=== PATIENT | female | born 1990 | race Caucasian/White ===

== ENCOUNTER 2023-01-12 09:55 | Outpatient (CLI) | payer OTHER, SELFPAY ==
--- NOTE | ~2023-01-12 | MMUS_ITS ---
EXAMINATION: US GUIDED NEEDLE BIOPSY DATE: 01/12/2023 12:45 CDT INDICATION: Left breast 11:00 mass TECHNIQUE AND FINDINGS: The risks and potential benefits of the procedure were discussed with the patient, and written inform ed consent was obtained. Timeout procedure was performed. After sterile preparation of the left breas t, 1% lidocaine was utilized for local anesthesia. A 12 G spring-loaded biopsy gun needle was advanced to the edge of the region of interest from infero lateral approach utilizing sonographic guidance. A total of three tissue core samples were obtained through the lesion. An Inrad tissue marker clip was then placed at the biopsy site. Hemostasis was a chieved. A sterile bandage was applied. The patient tolerated procedure well and there was no evidence of immediate complication. The patien t was given verbal instructions prior to departing from the department. A two view mammogram was perf ormed to document tissue marker clip placement. The tissue samples were submitted to surgical patholo gy for histologic analysis. IMPRESSION: Ultrasound guided biopsy of left 11:00 breast mass with biopsy marker placement. Please refer to path ology report for histologic analysis. Reviewed, dictated and finalized at [facility]. Reviewed, dictated and finalized at [facility]. IMPRESSION: Ultrasound guided biopsy of left 11:00 breast mass with biopsy marker placement . Please refer to pathology report for histologic analysis.
== END 2023-01-12 09:56 | disposition home or self-care (01) ==
LOC: ANHIMG 10:00
PROVIDERS: PCP Internal Medicine; Visit Provider Physician Assistant Surgical
DX: N63.20 Unspecified lump in the left breast, unspecified quadrant (principal); R92.8 Other abnormal and inconclusive findings on diagnostic imaging of breast
CPT/HCPCS: 19083; 88305; A4648

== ENCOUNTER 2023-01-24 10:40 | Outpatient (RCR) | payer OTHER, SELFPAY ==
[2023-01-24 11:02] VITALS: BP_SYST 140
--- NOTE | 2023-01-25 14:44 | PTOPEVAL1 ---
Assessment and note entered by Naila Sims, PT, DPT Evaluation Information Assessment Status Evaluation Diagnosis L shoulder pain Subjective Information Pt states her pain is actually in the L shoulder. Pt states over a year ago she was moving [place] country and has had pain since. She states she has seen a chiropractor and her GP for this issue in the last. She states her pain is annoying, and with her arm in certain positions her hand will hurt. She states she also has upper back pain with deep breathing. She states she cannot lay on her shoulder d/t pain. Reported Pain Level Pain Score 0: Self Report Assessment PT Clinical Summary Susana presents to therapy today for her initial evaluation with a diagnosis of L shoulder pain. Today she demonstrates decreased active shoulder strength and ROM on the L when compared to the R shoulder. She demonstrates poor scapulohumeral rhythm on the L. She also demonstrates postural deficits noted by forward and rounded shoulders. 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 She will follow up with the clinic in about a month. Plan of Care Interventions Manual Therapy,Neuro Re-education,Patient/ Caregiver Educati,Therapeutic Activities, Therapeutic Exercise PT Services Indicated Yes Treatment Frequency and 1x a month for 8 weeks Duration These treatments will address the objective and functional deficits as defined above. The patient will be advanced safely and appropriately in order for the patient to progress towards his/her prior level of function. Additional exercises will be introduced and as well as a comprehensive home exercise program upon discharge, if needed, ?to ensure carryover of functional gains achieved in the clinic. This treatment plan has been reviewed and agreement upon by the patient.
--- NOTE | 2023-03-29 10:40 | PTOPDC ---
Assessment and note entered by Naila Sims, PT, DPT Evaluation Information Assessment Status Discharge - Pt Not Present Diagnosis L shoulder pain Subjective Information Called pt to follow up on shoulder on 03/07/23 and have not heard back from her since. Assessment PT Clinical Summary Pt was evaluated on 01/24/23 and has not returned for any additional therapy. She will be discharged at this time. If additional therapy is needed at a later date she will need a new order.
== END 2023-03-29 14:49 | disposition home or self-care (01) ==
LOC: ANHGOSHPT 10:40
PROVIDERS: PCP Internal Medicine; Visit Provider Clinical Nurse Specialist
DX: M25.511 Pain in right shoulder (principal)
CPT/HCPCS: 97110; 97140; 97161

== ENCOUNTER 2023-11-23 11:41 | Outpatient (CLI) | payer BC, SELFPAY ==
--- NOTE | ~2023-11-23 | US_ITS ---
US breast LT limited 11/23/2023 12:09 Indication: Follow-up left breast mass following benign biopsy. Procedure: High-resolution Limited ultrasound of the left breast Comparison: Comparison to multiple prior studies sequentially, with oldest reviewed study dated 12/16. Findings: At 11:00, 3 cm from the nipple, there is an oval hypoechoic mass measuring 12 x 11 x 5 mm, unchanged from prior examination allowing for technique. There is a linear echogenic focus within the mass, most likely biopsy clip. There is parallel orientation, no internal vascularity and no signifi cant posterior features. Impression: 1: Stable oval hypoechoic left breast mass measuring 12 mm at 11:00, 3 cm from the nipple, previously biopsy-proven benign. BI-RADS CATEGORY 2 - BENIGN FINDINGS Reviewed, dictated and finalized at [facility]. Impression: 1: Stable oval hypoechoic left breast mass measuring 12 mm at 11:00, 3 cm from the nipple, previously biopsy-proven benign. BI-RADS CATEGORY 2 - BENIGN FINDINGS
== END 2023-11-23 11:42 ==
LOC: MICIMG 11:41
PROVIDERS: PCP Clinical Nurse Specialist; Visit Provider Clinical Nurse Specialist
DX: N63.20 Unspecified lump in the left breast, unspecified quadrant (principal); R92.8 Other abnormal and inconclusive findings on diagnostic imaging of breast
CPT/HCPCS: 76642

== ENCOUNTER 2024-05-17 12:11 | Emergency (ER) | payer BC, SELFPAY ==
--- NOTE | ~2024-05-17 | XR_ITS ---
EXAMINATION: XR chest 2V DATE: 05/17/2024 13:00 INDICATION: Cough. Dyspnea on exertion. TECHNIQUE: Frontal and lateral views of the chest were obtained. COMPARISON: None. FINDINGS: There is no pneumonia, pleural effusion, or pneumothorax. The heart size is normal. IMPRESSION: 1. No acute cardiopulmonary disease. Reviewed, dictated and finalized at location [facility]. [facility] FEEDER
[2024-05-17 12:20] VITALS: BP 125/88; PULSE 103; RESP 16; TEMP 37.1; O2SAT 100
--- NOTE | 2024-05-17 12:53 | ED.URI ---
HPI - URI/Sore Throat General Chief Complaint: Upper Respiratory Infection Stated Complaint: Fever/Nausea/Cough Time Seen by Provider: 05/17/24 12:32 Source: patient, RN notes reviewed and old records reviewed Mode of arrival: ambulatory Limitations: no limitations History of Present Illness HPI Narrative: 34 year old female who presents to [facility] with complaints of cold symptoms which started 10 days ago which have gotten better except for productive cough, hoarseness, and some nausea. Patient reports that she has noted some PLATA with patient able to speak in full sentences, no retractions, no tachypnea, SAO2 100% on room air MD elicited complaint: cough and other (hoarseness and PLATA) Onset (ago): day(s) (10) Severity: moderate Description of mucous: clear Able to tolerate fluids by mouth: Yes Treatments prior to arrival: ibuprofen Related Data Allergies Allergy/AdvReac Type Severity Reaction Status Date / Time bactrim Allergy Mild Rash Uncoded 05/17/24 12:22 Review of Systems Review of Systems: CONSTITUTIONAL: Reports malaise,no chills, sweats, or fever. EYES: Denies visual changes, redness, or discharge. ENT: Reports rhinorrhea, congestion,no sinus pain,no otalgia and sore throat. CARDIOVASCULAR: Denies chest pain, palpitations, or edema. RESPIRATORY: Reports productive cough.? Denies acute dyspnea, reports some PLATA GASTROINTESTINAL: Denies abdominal pain, positive for nausea,no vomiting,no diarrhea SKIN: Denies rash or itching. MUSCULOSKELETAL: Denies myalgia. NEUROLOGIC: Denies headache. All systems reviewed & are unremarkable except as noted in HPI and below PMFSH Past Medical History Medical History Abnormal mammogram of left breast Encounter to establish care Fatigue History of paroxysmal supraventricular tachycardia Rhinorrhea Screening for lipoid disorders Screening for metabolic disorder Vitamin D deficiency Surgical History Surgical History H/O cardiac radiofrequency ablation 2016 H/O left breast biopsy History of breast biopsy 2019 Family History Family History Mother Asthma Son Asthma Sibling Asthma Grandparent Breast cancer Hypertension Father Diabetes mellitus Hypertension Grandparent Diabetes mellitus Other Carcinoma of colon Social History Social History Smoking status: Never smoker Alcohol intake: current Alcohol use details: social drink Substance use: never Substance use type: does not use Do You Feel Safe in your Home?: Yes Lack of Transportation: No Lack of Food: Never True Current Housing: I Have Housing Concerned About Future Housing: No Difficulty Paying Gas/Electric Bills: No Difficulty Paying for Meds: No Currently Unemployed: No Education: Master's Degree or Higher Difficulty w/ Childcare or Family Care: No Living arrangements: with family Occupation/Education: occupation Gender identity (if verbalized by the patient): Female Sexual Orientation (if Verbalized by the Patient): Straight or Heterosexual Comments At time of signature, agree with nursing past medical, surgical, social and family history. There is no relevant family history pertinent to the presenting complaint Exam Narrative: GENERAL: Well-appearing, well-nourished, and in no acute distress. HEAD: Normocephalic EYES: PERRLA, conjunctivae clear ENT: Nares clear, turbinates edematous and erythematous, clear discharge. Mucous membranes moist. TM pearly bejarano with dull light reflex bilaterally; no tragal tenderness. Oropharynx erythematous without lesions. Tonsils not enlarged and without exudate, no drooling, positive for hoarseness, no trismus, uvula midline.post nasal drainage NECK: Supple. No lymphadenopathy CHEST: Clear to auscultation, breath sounds equal. No wheezing, rhonchi, rales, or stridor. No respiratory distress, speaks in full sentences.cough with some stated PLATA, SAO2 100% on room air no tachypnea noted or an signs of dyspnea noted or retractions. HEART: Regular rate and rhythm. No murmur heard. SKIN: Warm, dry, no rash. NEURO: Alert and oriented x3. PSYCH: Normal mood and affect Course Course Emergency Course: Patient is aware of diagnosis, understands and agrees to treatment plan.? Anticipatory guidance given.? Patient agrees to follow-up as directed and is aware of reasons to seek care at the emergency department. Portions of this record may have been created with voice recognition software Level of Care: Express Care Visit Vital Signs Vital signs: Vital Signs Temperature 37.1 C 05/17/24 12:20 Pulse Rate 103 H 05/17/24 12:20 Respiratory Rate 16 05/17/24 12:20 Blood Pressure 125/88 05/17/24 12:20 Pulse Oximetry 100 05/17/24 12:20 Temperature 37.1 C 05/17/24 12:20 Pulse Rate 103 H 05/17/24 12:20 Respiratory Rate 16 05/17/24 12:20 Blood Pressure 125/88 05/17/24 12:20 Pulse Oximetry 100 05/17/24 12:20 Reviewed MDM - URI/Sore Throat MDM Narrative Medical decision making narrative: Differential diagnosis considered: Saavedra virus, strep pharyngitis, allergic rhinitis, upper respiratory tract infection, sinusitis, rhinosinusitis, nasopharyngitis. viral pharyngitis, otitis media, otitis externa, pneumonia, bronchitis, viral cough syndrome, viral syndrome, and influenza.? Exam findings show no acute concerns or changes; patient is non-toxic appearing and is in no distress.? Patient is appropriate for outpatient treatment and follow-up. Differential Diagnosis Differential diagnosis: Likely upper respiratory infection, sinusitis, viral infection and other (cough, PLATA, some nausea) Medical Records Attestation: I reviewed the patient's medical records. Lab Data Attestation: I reviewed the patient's lab results. Imaging Data Attestation: I personally reviewed and interpreted this imaging study as follows: My impression: no acute cardiopulmonary disease Radiologist's impression: [address] [place] [address] XRay Report Signed Patient: Susana Sy : 1990 MR#: [id number] Age: 34 Acct:[id number] Loc: [facility] ADM Date: 05/17/24Attending Dr: Ordering Physician: Massiel Frye APRN Date of Service: 05/17/24 Procedure(s): XR chest 2V Accession Number(s): [id number] cc: Massiel Frye APRN; Tori Menendez APRN~ EXAMINATION: XR chest 2V DATE: 05/17/2024 13:00 INDICATION: Cough. Dyspnea on exertion. TECHNIQUE: Frontal and lateral views of the chest were obtained. COMPARISON: None. FINDINGS: There is no pneumonia, pleural effusion, or pneumothorax. The heart size is normal. IMPRESSION: 1. No acute cardiopulmonary disease. Reviewed, dictated and finalized at [facility]. CURER Dictated By: Matthew Garay MD 05/17/24 1307 Signed By: <Electronically signed by Matthew Garay MD in OV> Critical Care Time Critical Care Time Critical Care Time: No Discharge Plan Discharge Clinical Impression: URI with cough and congestion Patient Disposition: Home, Self-Care Condition: Stable Instructions: Antibiotic Form, Upper Respiratory Infection (ED), Acute Cough (ED) Additional Instructions: Increase fluids especially juices and water [id number] cough and cold medicine of your choice for your symptoms Zyrtec Claritin or Josephine include Coricidin brand decongestant Steroids as directed--take with food heat to the face 20-30 minutes 4-6 times a day for pain Salt water gargles, throat lozenges or throat sprays as desired Antibiotic as directed--finished the medication If your symptoms persist, change or worsen significantly before you can contact your personal physician then please, without delay, go to the emergency department for further evaluation. Follow-up with PCP in 7-10 days or sooner if needed Follow up with PCP soon in regards to your blood pressure which is elevated above threshold for referral. Blood pressure above 120/80 may indicate pre-hypertension. 125/88 Prescriptions: New azithromycin 250 mg tablet See Rx Instructions .ROUTE .COMPLEX Qty: 6 0RF Rx Instructions: For 250 mg dose pack: take 500 mg today (day 1), then 250 mg for 4 days (days 2-5) prednisone 20 mg tablet 20 mg PO BID Qty: 10 0RF Rx Instructions: take with food in am and early pm No Action clobetasol 0.05 % solution 1 applic topical BID 14 Days Qty: 50 1RF Rx Instructions: Apply twice a day for 2 weeks to scalp and then as needed. cholecalciferol (vitamin D3) 1,250 mcg (50,000 unit) tablet 1,250 mcg PO WEEKLY Qty: 8 0RF atomoxetine [Strattera] 80 mg capsule 80 mg PO DAILY Qty: 90 0RF Rx Instructions: DUE FOR AN APPOINTMENT. Follow-up/Referrals: Tori Menendez [facility] [Primary Care Provider] - Time of Disposition: 13:22 Quality [place] Coma Scale Eyes: Open Verbal: Oriented and Alert Motor: Follows Commands [place] Coma Total Score: 15
== END 2024-05-17 13:25 | disposition home or self-care (01) ==
PROVIDERS: Emergency Provider Registered Nurse; PCP Clinical Nurse Specialist
DX: J06.9 Acute upper respiratory infection, unspecified (principal); R05.9 Cough, unspecified
CPT/HCPCS: 71046; 99213; G0463

== ENCOUNTER 2024-09-19 10:04 | Outpatient (CLI) | payer OTHER, SELFPAY ==
--- NOTE | ~2024-09-19 | XR_ITS ---
Lumbosacral Spine: AP and lateral views Clinical History: Pain Findings: The normal lordotic curve is maintained. The vertebral bodies and posterior elements are i ntact. The intervertebral disc spaces are preserved. The sacroiliac joints are normally outlined. Impression: No significant abnormality. Reviewed, dictated and finalized at [facility]. Impression: No significant abnormality.
== END 2024-09-19 10:05 | disposition home or self-care (01) ==
PROVIDERS: PCP Clinical Nurse Specialist; Visit Provider Nurse Practitioner
DX: M54.16 Radiculopathy, lumbar region (principal)
CPT/HCPCS: 72110

== ENCOUNTER 2024-10-28 13:49 | Outpatient (CLI) | payer OTHER, SELFPAY ==
--- NOTE | ~2024-10-28 | MR_ITS ---
EXAMINATION: MR lumbar spine wo con DATE: 10/28/2024 14:13 INDICATION: Lumbar radiculopathy TECHNIQUE: Magnetic resonance imaging (MRI) of the lumbar spine was performed without intravenous con trast. Sequences included sagittal T2-weighted FSE, sagittal T2-weighted FS FSE, sagittal T1-weighted FSE, and axial T2-weighted FSE. COMPARISON: None FINDINGS: Alignment is normal. Vertebral body heights are normal. Normal marrow signal. Moderate disc height l oss with annular fissure and right paracentral disc extrusion at L5-S1. Remaining discs are normal. T he conus medullaris terminates at L1-L2. There is normal signal in the caudal spinal cord. Paraverteb ral soft tissues are unremarkable. The following disc levels are specifically discussed: T12-L1 through L4-L5: The disc does not extend beyond the endplate margin. There is mild bilateral fa cet joint osteoarthritis. There is no neural foraminal stenosis. There is no central canal stenosis. L5-S1: Annular fissure and right paracentral disc extrusion which measures 12 mm left to right from t he midline to the right neural foramen, 8 mm AP and 9 mm chronic caudally. This narrows the right lat eral recess exerting mass effect upon the traversing right S1 nerve root. There is mild bilateral fac et joint osteoarthritis. There is no neural foraminal stenosis. There is minimal central canal stenos is. IMPRESSION: 1. Annular fissure and moderate sized right paracentral disc extrusion at L5-S1 which significantly n arrows the right lateral recess exerting mass effect upon the traversing right S1 nerve root. Correla te clinically for muscle weakness of plantar flexion, sensory change of the lateral foot and small to e, and depressed ankle reflex. Reviewed, dictated and finalized at location B. IMPRESSION: 1. Annular fissure and moderate sized right paracentral disc extrusion at L5-S1 which significantly narrows the right lateral recess exerting mass effect upon the traversing right S1 nerve root. Correlate clinically for muscle weakness o f plantar flexion, sensory change of the lateral foot and small toe, and depres sed ankle reflex.
== END 2024-10-28 13:50 | disposition home or self-care (01) ==
LOC: MICIMG 13:50
PROVIDERS: PCP Clinical Nurse Specialist; Visit Provider Nurse Practitioner
DX: M54.16 Radiculopathy, lumbar region (principal); M51.27 Other intervertebral disc displacement, lumbosacral region
CPT/HCPCS: 72148

== ENCOUNTER 2024-11-08 13:15 | Outpatient (RCR) | payer OTHER, SELFPAY ==
--- NOTE | 2024-08-13 13:12 | OPREHPOC ---
Outpatient Therapy Plan of Care This is a Multidisciplinary Plan of Care that may contain components documented by all disciplines (PT, OT, and ST.) PT Problem 1 PT Problem #1 Knowledge Deficit PT Goal 1 Goal / Goal Update 1. Patient will perform independent HEP Target Visit 3 PT Problem 2 PT Problem #2 Pain PT Goal 1 Goal / Goal Update 1. No pain with pelvic exam to allow for intercourse, tampon/cup use, pelvic exam etc. Target Visit 6 PT Problem 3 PT Problem #3 Impaired Strength PT Goal 1 Goal / Goal Update 1. Hip strength 5/5 brisa to support low back Target Visit 6 PT Problem 4 PT Problem #4 Impaired Functional ADLs PT Goal 1 Goal / Goal Update 1. Patient will void no more than 8 times per day 2. Patient will report no difficulty with BM Target Visit 6
--- NOTE | 2024-08-13 13:13 | PTOPEVAL1 ---
Assessment and note entered by Violet Granados DPT Evaluation Information Assessment Status Evaluation ICD-10 Condition Codes (PT) Pain in low back M54.50,Pelvic and perineal pain R10.2 Subjective Information Pt reports a history of back and pelvic pain. Has had pelvic pain for several years. Pelvic pain with intercourse, has never been able to tolerated tampon use but can use a menstrual cup. Has tolerated pap smears as well. Has a history of back pain with an exacerbation in February 2024. Highest pelvic pain 8-9/10 and lowest 0/10, highest back pain 5/10 and lowest 0/10. Voids more than 10 times a day and does void overnight if she is up for something else. Denies pain with urination. Denies urinary incontinence. Can hold urge to void up to 15 minutes. BM 1 time a day but reports it takes effort . Denies pain with BM and no fecal incontinence. Pt has been and delivered 2 times, both vaginally and episiotomy with first and significant tearing with the second. Currently undergoing some testing due to hot flashes, also has been diagnosed with endo . No b/b history. Return to MD not scheduled. Patient goal: be able to have sex without pain, BM without struggling Reported Pain Level Pain Score 0: Self Report Assessment PT Clinical Summary The patient is presenting to skilled therapy with a history of pelvic pain and low back pain. She presents with decreased hip strength L>R, diastasis recti, pelvic pain on palpation and significantly decreased pelvic floor muscle tone. She will highly benefit from therapy to address her impairments in order to reduce pain and improve function. Plan of Care Interventions Electrical Stimulation,Gait Training,Hot Pack/Cold Pack,Manual Therapy,Neuro Re-education,Patient/ Caregiver Education,Therapeutic Activities, Therapeutic Exercise PT Services Indicated Yes Treatment Frequency and 1 time a week for 6 visits Duration These treatments will address the objective and functional deficits as defined above. The patient will be advanced safely and appropriately in order for the patient to progress towards his/her prior level of function. Additional exercises will be introduced and as well as a comprehensive home exercise program upon discharge, if needed, ?to ensure carryover of functional gains achieved in the clinic. This treatment plan has been reviewed and agreement upon by the patient.
--- NOTE | 2024-08-19 13:36 | PCPTNOTE ---
Patient rescheduled appointment from 08/19/24 to later in the week due to her kids being off school today.
--- NOTE | 2024-09-16 15:30 | OPREHPOC ---
Outpatient Therapy Plan of Care This is a Multidisciplinary Plan of Care that may contain components documented by all disciplines (PT, OT, and ST.) PT Problem 1 PT Problem #1 Knowledge Deficit PT Goal 1 Goal / Goal Update 1. Patient will perform independent HEP Target Visit 3 Progress Met PT Problem 2 PT Problem #2 Pain PT Goal 1 Goal / Goal Update 1. No pain with pelvic exam to allow for intercourse, tampon/cup use, pelvic exam etc. update 09/16/24 1. pain 2/10 on exam Target Visit 12 Progress Partially Met PT Problem 3 PT Problem #3 Impaired Strength PT Goal 1 Goal / Goal Update 1. Hip strength 5/5 brisa to support low back update 09/16/24 1. 4+/5 in all planes Target Visit 12 Progress Partially Met PT Problem 4 PT Problem #4 Impaired Functional ADLs PT Goal 1 Goal / Goal Update 1. Patient will void no more than 8 times per day 2. Patient will report no difficulty with BM update 09/16/24 1. met 2. not met Target Visit 12 Progress Partially Met
--- NOTE | 2024-09-16 15:30 | PTOPPROG ---
Assessment and note entered by Violet Granados DPT Evaluation Information Assessment Status Progress ICD-10 Condition Codes (PT) Pain in low back M54.50,Pelvic and perineal pain R10.2 Subjective Information Highest pelvic pain in the last week 0/10 and was able to tolerate intercourse and use of menstrual cup without pain. Highest back pain in last week 7 10 and lowest 0/10. Feels better with stretching and laying in the position. Voiding 6 times a day and can hold up to an hour. Still noticing it takes more effort to have a BM at times but it has improved a lot overall. Assessment PT Clinical Summary The patient has made good progress in therapy and reports greatly decreased pelvic pain overall. She demonstrates improved pelvic floor strength/ endurance. She does continue to report intermittent high levels of back pain but demonstrates improved hip strength. She will continue to benefit from skilled therapy to address overall strength and reduce pain in order to return to full function. Plan of Care Interventions Electrical Stimulation,Gait Training,Hot Pack/Cold Pack,Manual Therapy,Neuro Re-education,Patient/ Caregiver Education,Therapeutic Activities, Therapeutic Exercise PT Services Indicated Yes Treatment Frequency and 1-2 times a week for 4-8 visits Duration These treatments will address the objective and functional deficits as defined above. The patient will be advanced safely and appropriately in order for the patient to progress towards his/her prior level of function. Additional exercises will be introduced and as well as a comprehensive home exercise program upon discharge, if needed, ?to ensure carryover of functional gains achieved in the clinic. This treatment plan has been reviewed and agreement upon by the patient.
--- NOTE | 2024-09-18 14:43 | PCPTNOTE ---
Patient canceled this date due to illness.
--- NOTE | 2024-10-24 09:50 | OPREHPOC ---
Outpatient Therapy Plan of Care This is a Multidisciplinary Plan of Care that may contain components documented by all disciplines (PT, OT, and ST.) PT Problem 1 PT Problem #1 Knowledge Deficit PT Goal 1 Goal / Goal Update 1. Patient will perform independent HEP Target Visit 3 Progress Met PT Problem 2 PT Problem #2 Pain PT Goal 1 Goal / Goal Update 1. No pain with pelvic exam to allow for intercourse, tampon/cup use, pelvic exam etc. update 09/16/24 1. pain 2/10 on exam update 10/24/24 1. not assessed based on no recent symptoms Target Visit 20 Progress Partially Met PT Problem 3 PT Problem #3 Impaired Strength PT Goal 1 Goal / Goal Update 1. Hip strength 5/5 brisa to support low back update 09/16/24 1. 4+/5 in all planes update 10/24/24 1. 5/5 on R, 4+/5 on L Target Visit 20 Progress Partially Met PT Problem 4 PT Problem #4 Impaired Functional ADLs PT Goal 1 Goal / Goal Update 1. Patient will void no more than 8 times per day 2. Patient will report no difficulty with BM update 09/16/24 1. met 2. not met update 10/24/24 2. met Target Visit 12 Progress Met
--- NOTE | 2024-10-24 09:50 | PTOPPROG ---
Assessment and note entered by Violet Granados DPT Evaluation Information Assessment Status Progress ICD-10 Condition Codes (PT) Pain in low back M54.50,Pelvic and perineal pain R10.2 Subjective Information Pt reports she slept 8 hours last night without waking due to pain. Highest back pain in the last week 5-6/10 and lowest 0/10. Still having pain daily. Is seeing improvement when she does her HEP to relieve pain at home. No pelvic pain in the last week. Did recently have a coughing fit and had significant incontinence. No other incontinence in the last month. Also notices that it feels fairly normal to have a BM . Assessment PT Clinical Summary The patient has continued to make good progress in therapy overall. One instance of incontinence in the last month during a coughing fit. Overall reports decreased back pain but continues to have pain daily. The pain is improved when performing HEP. She also demonstrates improved hip strength but continues to demonstrate SIJ impairments. She will continue to benefit from skilled therapy to further reduce pain and return to full function. Plan of Care Interventions Electrical Stimulation,Gait Training,Hot Pack/Cold Pack,Manual Therapy,Neuro Re-education,Patient/ Caregiver Education,Therapeutic Activities, Therapeutic Exercise PT Services Indicated Yes Treatment Frequency and 1-2 times a week for 5-10 visits Duration These treatments will address the objective and functional deficits as defined above. The patient will be advanced safely and appropriately in order for the patient to progress towards his/her prior level of function. Additional exercises will be introduced and as well as a comprehensive home exercise program upon discharge, if needed, ?to ensure carryover of functional gains achieved in the clinic. This treatment plan has been reviewed and agreement upon by the patient.
--- NOTE | 2024-11-12 15:57 | PCPTNOTE ---
This treatment is being continued on visit number [id number]. Please see documentation on both accounts to view progress. Completed interventions, outcomes, and problems have been marked as Inactive to facilitate the copying of the Care plan routine for recurring accounts.
== END 2024-11-11 23:59 | disposition home or self-care (01) ==
LOC: ANHGOSHPT 13:15
PROVIDERS: PCP Internal Medicine
DX: N94.10 Unspecified dyspareunia (principal); M54.16 Radiculopathy, lumbar region
CPT/HCPCS: 97110; 97112; 97140; 97162; 97530

== ENCOUNTER 2024-11-20 10:00 | Outpatient (RCR) | payer OTHER, SELFPAY ==
--- NOTE | 2024-11-12 15:59 | PCPTNOTE ---
The treatment documented on this account is a continuation of the treatment documented on visit number [id number]. Please see documentation on both accounts to view progress. The Plan of Care has been transitioned and updated within the new V#. I have addressed and agree with the discipline specific Problems, Interventions, and Goals for the current certification period. Completed interventions, outcomes, and problems have been marked as Inactive to facilitate the copying of the Care plan routine for recurring accounts.
--- NOTE | 2024-11-20 10:53 | PTOPDC ---
Assessment and note entered by Yefri Sifuentes Evaluation Information Assessment Status Discharge ICD-10 Condition Codes (PT) Pain in low back M54.50,Pelvic and perineal pain R10.2 Subjective Information Pt. reports that she is overall improved in regards to her back pain. She reports that she is still concerned regarding prevention. she reports that she does do a comprehensive exercise routine daily at home. She notices pain mostly with long periods of sitting and driving, but less intense than initially. She states that she is comfortable continuing with exercise at home at this time. Reported Pain Level Pain Score 3: Self Report Assessment PT Clinical Summary Susana Sy has attended a total of 16 treatment sessions addressing lower back pain and pelvic floor pain. Subjective reports of pain are significantly reduced since initial evaluation. She has been advanced through a comprehensive rehab program focused on core stability, as well as extension category activities. While she still presents with mild hip weakness, she is independent with a HEP to continue to advance strength. At this time recommend pt. continue with her HEP and she will be discharged from our care. Plan of Care PT Services Indicated No
== END 2024-11-22 11:25 | disposition home or self-care (01) ==
LOC: ANHGOSHPT 10:00
PROVIDERS: PCP Clinical Nurse Specialist
DX: N94.10 Unspecified dyspareunia (principal); M54.16 Radiculopathy, lumbar region
CPT/HCPCS: 97110; 97112; 97530